=== PATIENT | male | born 1950 | race African-American/Black ===

== ENCOUNTER → 2016-04-28 | Outpatient (CLI) | payer OTHER ==
--- NOTE | 2016-04-28 14:11 | US ---
EXAMINATION TYPE: US liver DATE OF EXAM: 04/28/2016 2:00 PM COMPARISON: NONE CLINICAL HISTORY: Hep C B1.82. EXAM MEASUREMENTS: Liver Length: 18.1 cm Gallbladder Wall: 0.5 cm CBD: 1.1 cm Right Kidney: 9.4 x 4.1 x 3.9 cm Findings: Pancreas: Limited by overlying bowel Liver: enlarged Gallbladder: no evidence of stones, thickened GB wall Evidence for sonographic Larose's sign: No CBD: dilated Right Kidney: no evidence of hydronephrosis or mass IMPRESSION: 1. Mild hepatomegaly 2. No gallstones although there is mild wall thickening measuring 5 mm correlate clinically. 3. CBD measures 1.1 cm and appears dilated. Correlate for distal CBD obstruction or pathology includi ng stone.
== END | disposition home or self-care (01) ==
LOC: RADUSWWP 13:39
PROVIDERS: ATTEND Internal Medicine Gastroenterology
DX: R16.0 Hepatomegaly, not elsewhere classified (principal); B18.2 Chronic viral hepatitis C
CPT/HCPCS: 76705

== ENCOUNTER 2016-06-10 11:32 | Emergency (ER) | payer OTHER ==
--- NOTE | 2016-06-10 13:58 | XR ---
EXAMINATION TYPE: XR foot complete LT DATE OF EXAM: 06/10/2016 1:24 PM COMPARISON: NONE HISTORY: Pain The osseous structures are intact and narrowing the first MTP joint. There is chronic deformity proxi mal phalanx second digit suggestive of remote trauma.. There is no acute fracture or dislocation. IMPRESSION: 1. No acute fracture or dislocation. If symptoms persist, follow-up exam in 7 to 10 days could be ob tained.
--- NOTE | 2016-06-10 14:11 | ED ---
General Adult HPI - General Chief complaint: Extremity Injury, Lower Stated complaint: LEFT ANKLE PAIN Time Seen by Provider: 06/10/16 11:40 Source: patient, RN notes reviewed Mode of arrival: ambulatory Limitations: no limitations - History of Present Illness Initial comments: This is a 65-year-old male presents to the emergency department stating that every 3 or so months he gets up out of bed and the lateral aspect of his left foot hurts to the point where it is difficult to walk. Patient states he normally walks and off over 3-4 days and it goes away. Patient states about a week and a half ago this started but the pain persists. Patient denies any injury to the foot. Patient denies any redness. Patient denies any swelling. Patient denies any pain to the middle of the foot or the ankle. Patient states the foot looks completely normal but it does hurt to walk on it. Patient denies having stepped on anything recently. - Related Data Home Medications Medication Instructions Recorded Confirmed Aspirin [Adult Low Dose Aspirin EC] 81 mg PO DAILY 04/02/15 06/10/16 Cholecalciferol [Vitamin D3] 1,000 unit PO DAILY 04/02/15 06/10/16 Insulin Glargine [Lantus] 40 unit SQ DAILY 04/02/15 06/10/16 Lisinopril [Zestril] 10 mg PO DAILY 04/02/15 06/10/16 Sertraline [Zoloft] 100 mg PO DAILY 04/02/15 06/10/16 Sodium Bicarbonate Tab 650 mg PO BID 04/02/15 06/10/16 Gabapentin [Neurontin] 100 mg PO TID 06/10/16 06/10/16 Renal Cap 1 Mg 1 mg PO DAILY 06/10/16 06/10/16 Previous Rx's Medication Instructions Recorded Ibuprofen [Motrin] 600 mg PO Q6HR PRN #20 tab 06/10/16 Allergies Allergy/AdvReac Type Severity Reaction Status Date / Time No Known Allergies Allergy Verified 06/10/16 11:38 Review of Systems ROS Statement: Those systems with pertinent positive or pertinent negative responses have been documented in the HPI. ROS Other: All systems not noted in ROS Statement are negative. Past Medical History Past Medical History: Diabetes Mellitus, Hyperlipidemia, Hypertension, Renal Disease History of Any Multi-Drug Resistant Organisms: None Reported Past Surgical History: Orthopedic Surgery Past Psychological History: No Psychological Hx Reported Smoking Status: Former smoker Past Alcohol Use History: None Reported Past Drug Use History: None Reported General Exam - General Exam Comments Initial Comments: GENERAL Patient is well-developed and well-nourished. Patient is in mild distress. EYES Patient's pupils are equal and round. Extraocular motion is intact SKIN Unremarkable NEURO The patient is alert and oriented 3 PYSCH Patient has normal interpersonal interactions. MUSCULOSKELETAL Patient's foot is tender in the fifth metatarsal on the left foot. There is no swelling of the foot there is no redness of the foot there is no cut or abrasion. Limitations: no limitations Course Vital Signs 06/10/16 06/10/16 11:36 14:30 Temperature 97.8 F 97.5 F L Pulse Rate 78 70 Respiratory 20 18 Rate Blood Pressure 122/72 122/78 O2 Sat by Pulse 97 98 Oximetry Medical Decision Making - Medical Decision Making X-ray of the foot shows no acute abnormality Disposition Clinical Impression: Foot sprain Disposition: HOME SELF-CARE Instructions: Foot Sprain (ED) Prescriptions: Ibuprofen [Motrin] 600 mg PO Q6HR PRN #20 tab PRN Reason: For pain Referrals: Adair Caraballo MD [Primary Care Provider] - 1-2 days Time of Disposition: 14:11
[2016-06-10] MEDS: KETOROLAC 60 MG/2 ML VIAL IM STA (14:28)
[2016-06-10 14:36] VITALS: BP 122/78; PULSE 70; RESP 18; TEMP 97.5
== END 2016-06-10 14:36 | disposition home or self-care (01) ==
LOC: EC 11:32
DX: S93.602A Unspecified sprain of left foot, initial encounter (principal); E11.9 Type 2 diabetes mellitus without complications; E78.5 Hyperlipidemia, unspecified; I10 Essential (primary) hypertension; N28.9 Disorder of kidney and ureter, unspecified; Z87.891 Personal history of nicotine dependence; Z79.4 Long term (current) use of insulin; Z79.82 Long term (current) use of aspirin; Z79.899 Other long term (current) drug therapy; X58.XXXA Exposure to other specified factors, initial encounter
CPT/HCPCS: 73630; 99283; 96372; J1885

== ENCOUNTER → 2016-06-25 | Outpatient (CLI) | payer OTHER ==
--- NOTE | 2016-06-25 15:54 | XR ---
Right ankle HISTORY: Pain 3 views of the right ankle correlated to right foot same date Degenerative change present at the tibiotalar joint. Soft tissue swelling is noted. No fracture or di slocation. Alignment, bone mineralization maintained. IMPRESSION: Soft tissue swelling
--- NOTE | 2016-06-25 15:56 | XR ---
Right foot HISTORY: Right foot pain Correlation to right ankle same date There are degenerative changes at the metatarsophalangeal joint, tarsometatarsal joint of the first d igit. Alignment and bone mineralization are maintained. Enthesophyte present at the insertion of the Achilles tendon. IMPRESSION: Osteoarthritic changes as described.
== END | disposition home or self-care (01) ==
LOC: RADXRMAIN 15:11
PROVIDERS: ATTEND Internal Medicine
DX: M19.071 Primary osteoarthritis, right ankle and foot (principal); M79.89 Other specified soft tissue disorders

== ENCOUNTER → 2016-09-15 | Outpatient (CLI) | payer OTHER ==
[2016-09-15 13:40] LABS: Basophils # (A) 0.1 k/uL (0-0.2); Basophils % (A) 1 %; CH 27.2; CHCM 31.6; Eosinophils # (A) 0.1 k/uL (0-0.7); Eosinophils % (A) 2 %; HCT 43.8 % (39.0-53.0); HDW 3.33; HGB 13.5 gm/dL (13.0-17.5); Hypochromasia Slight; INR 1.2 (<1.1); Luc # (Auto) 0.14; Luc % (Auto) 2; Lymphocytes # (A) 2.3 k/uL (1.0-4.8); Lymphocytes % (A) 36 %; MCH 26.9 pg (25.0-35.0); MCHC 30.9 g/dL (31.0-37.0); Mean Platelet Volume 7.3; Monocytes # (A) 0.3 k/uL (0-1.0); Monocytes % (A) 5 %; Neutrophils # (A) 3.4 k/uL (1.3-7.7); Neutrophils % (A) 55 %; Prothrombin Time 11.6 sec (9.0-12.0); RBC 5.04 m/uL (4.30-5.90); RDW 15.5 % (11.5-15.5); WBC 6.3 k/uL (3.8-10.6); WBC (Perox) 6.09
[2016-09-15 13:44] LABS: Bilirubin, Delta 0.4 mg/dL (0.0-0.2); Total Bilirubin 0.7 mg/dL (0.2-1.3); Total Protein 8.5 g/dL (6.3-8.2)
[2016-09-16 15:16] LABS: Hepatits C Virus RNA, Quant <12 IU/mL (<12); LOG HCV IU/mL <1.08 (<1.08)
== END | disposition home or self-care (01) ==
LOC: LABWHC1 13:01
PROVIDERS: ATTEND Physician Assistant
DX: B18.2 Chronic viral hepatitis C (principal)
CPT/HCPCS: 36415; 80076; 82105; 85025; 85610; 87522

== ENCOUNTER → 2016-10-26 | Outpatient (CLI) | payer MEDICARE, OTHER ==
--- NOTE | 2016-10-26 08:05 | US ---
EXAMINATION TYPE: US liver DATE OF EXAM: 10/26/2016 COMPARISON: Previous study dated 04/28/2016. CLINICAL HISTORY: B18.2 CHR VIRAL HEP C. Chronic Hep C EXAM MEASUREMENTS: Liver Length: 16.9 cm Gallbladder Wall: 0.2 cm CBD: 1.3 cm Right Kidney: 9.4 x 4.5 x 4.4 cm Pancreas: Tail obscured by bowel gas, duct visualized= 2mm Liver: Heterogeneous, left and caudate lobe appeared enlarged Gallbladder: wnl Evidence for sonographic Larose's sign: No CBD: Dilated as seen on previous Right Kidney: wnl Limited views of the pancreas are normal. The liver is upper limits of normal in size. Liver parenchyma is heterogenous. The gallbladder is normal without cholelithiasis. Gallbladder wall measures 2 mm. Distal common hepat ic duct is enlarged measuring 1.3 cm. The right kidney is normal. IMPRESSION: 1. COARSENED LIVER TEXTURE OF UNCERTAIN ETIOLOGY. 2. CHRONICALLY DILATED COMMON HEPATIC DUCT.
== END | disposition home or self-care (01) ==
LOC: RADUSWWP 07:36
PROVIDERS: ATTEND Internal Medicine Gastroenterology
DX: B18.2 Chronic viral hepatitis C (principal); K76.89 Other specified diseases of liver
CPT/HCPCS: 76705

== ENCOUNTER → 2017-05-20 | Outpatient (CLI) | payer MEDICARE, OTHER | END | disposition home or self-care (01) | LOC: RADMRIMAIN 14:07 | PROVIDERS: ATTEND Physician Assistant | DX: Z53.9 Procedure and treatment not carried out, unspecified reason (principal) ==

== ENCOUNTER → 2017-06-14 | Outpatient (CLI) | payer MEDICARE, OTHER ==
[2017-06-14 13:31] LABS: Basophils % (A) 1 %; Eosinophils # (A) 0.1 k/uL (0-0.7); Eosinophils % (A) 4 %; HCT 40.3 % (39.0-53.0); HGB 12.8 gm/dL (13.0-17.5); Hypochromasia Slight; INR 1.1 (<1.2); Lymphocytes # (A) 1.3 k/uL (1.0-4.8); Lymphocytes % (A) 35 %; MCHC 31.7 g/dL (31.0-37.0); MCV 85.1 fL (80.0-100.0); Mean Platelet Volume 7.6; Monocytes # (A) 0.1 k/uL (0-1.0); Monocytes % (A) 4 %; Neutrophils # (A) 2.1 k/uL (1.3-7.7); Neutrophils % (A) 56 %; Platelet Count 136 k/uL (150-450); Prothrombin Time 10.7 sec (9.0-12.0); RBC 4.73 m/uL (4.30-5.90); RDW 15.1 % (11.5-15.5); WBC 3.8 k/uL (3.8-10.6)
[2017-06-14 13:36] LABS: Albumin 4.3 g/dL (3.5-5.0); Bilirubin, Delta 0.3 mg/dL (0.0-0.2); Bilirubin,Unconjugated 0.2 mg/dL (0.0-1.1); Total Bilirubin 0.5 mg/dL (0.2-1.3); Total Protein 7.6 g/dL (6.3-8.2)
[2017-06-15 15:08] LABS: Hepatits C Virus RNA Not detected (Not detected); Hepatits C Virus RNA, Quant <12 IU/mL (<12); LOG HCV IU/mL <1.08 (<1.08)
--- NOTE | 2017-06-15 22:08 | MR ---
EXAMINATION TYPE: MR liver wo/w con DATE OF EXAM: 06/14/2017 COMPARISON: Ultrasound 10/26/2016 and 07/12/2014 HISTORY: 66-year-old male abnormal findings on diagnostic imaging of liver Technique: Multiplanar, multisequence images of the abdomen were obtained before and after administra tion of 10 mL intravenous Gadavist gadolinium contrast. FINDINGS: Heart is normal size without pericardial effusion. The liver is enlarged measuring 18.9 cm. Opposed phase T1-weighted sequences of the liver show no sig nal loss to suggest fatty infiltration. There is a tiny subcentimeter nonenhancing T2 hyperintense fo cus in the right liver lobe suggestive of a benign cyst. No suspicious enhancing or hypervascular luis er lesion. Portal venous system is patent. The bile duct is dilated up to 1.3 cm which is the caliber seen on the ultrasound of 07/12/2014. Gallbladder shows no abnormal distention or surrounding inflammation. No discrete gallstone is seen. Spleen is enlarged measuring 15.6 cm on axial series. The adrenal glands, kidneys, and pancreas appear within normal limits. A borderline enlarged 9 mm fozia hepatic lymph node is likely reactive. Otherwise, no upper abdominal lymphadenopathy, ascites fluid, or gross bowel abnormality seen. IMPRESSION: Hepatosplenomegaly. No evidence for hepatoma. A borderline sized portahepatic lymph node at 9 mm is likely reactive.
== END | disposition home or self-care (01) ==
LOC: RADMRIMAIN 11:44
PROVIDERS: ATTEND Internal Medicine Gastroenterology
DX: R16.2 Hepatomegaly with splenomegaly, not elsewhere classified (principal); Z01.812 Encounter for preprocedural laboratory examination; B18.2 Chronic viral hepatitis C
CPT/HCPCS: 00000; 87522; 80076; 82565; 84520; 85025; 85610; 82105; 74183; A9581; 0

== ENCOUNTER → 2017-12-09 | Outpatient (CLI) | payer MEDICARE, OTHER ==
[2017-12-09 13:26] LABS: Anisocytosis Slight; HCT 39.7 % (39.0-53.0); HGB 12.3 gm/dL (13.0-17.5); Hypochromasia Slight; MCH 26.7 pg (25.0-35.0); MCHC 31.1 g/dL (31.0-37.0); MCV 85.8 fL (80.0-100.0); Mean Platelet Volume 7.4; Platelet Count 133 k/uL (150-450); Poikilocytosis Slight; RBC 4.63 m/uL (4.30-5.90); RDW 16.6 % (11.5-15.5); WBC 4.8 k/uL (3.8-10.6)
[2017-12-09 13:45] LABS: Appearance,Urine Clear (Clear); Bilirubin,Urine Negative (Negative); Blood,Urine Negative (Negative); Color,Urine Light Yellow; Glucose,Urine (UA) Negative (Negative); Ketones,Urine Negative (Negative); Leukocyte Esterase,Urine Negative (Negative); Nitrite,Urine Negative (Negative); PH, Urine 5.5 (5.0-8.0); Protein,Urine Negative (Negative); Specific Gravity,Urine 1.009 (1.001-1.035); Urobilinogen,Urine <2.0 mg/dL (<2.0)
[2017-12-09 13:53] LABS: Albumin 4.5 g/dL (3.5-5.0); Phosphorus 3.5 mg/dL (2.5-4.5); Potassium 4.9 mmol/L (3.5-5.1); Total Bilirubin 0.5 mg/dL (0.2-1.3); Total Protein 7.8 g/dL (6.3-8.2)
== END | disposition home or self-care (01) ==
LOC: LABWHC1 12:37
PROVIDERS: ATTEND Internal Medicine Nephrology
DX: N18.9 Chronic kidney disease, unspecified (principal); D63.1 Anemia in chronic kidney disease; E83.39 Other disorders of phosphorus metabolism; N39.0 Urinary tract infection, site not specified
CPT/HCPCS: 36415; 80053; 81003; 84100; 85027

== ENCOUNTER → 2017-12-24 | Outpatient (CLI) | payer MEDICARE, OTHER ==
[2017-12-24 14:08] LABS: Appearance,Urine Clear (Clear); Bilirubin,Urine Negative (Negative); Blood,Urine Negative (Negative); Color,Urine Yellow; Glucose,Urine (UA) Negative (Negative); Ketones,Urine Negative (Negative); Leukocyte Esterase,Urine Negative (Negative); Nitrite,Urine Negative (Negative); PH, Urine 5.5 (5.0-8.0); Protein,Urine Negative (Negative); Specific Gravity,Urine 1.016 (1.001-1.035); Urobilinogen,Urine <2.0 mg/dL (<2.0)
[2017-12-24 14:09] LABS: Anisocytosis Slight; Basophils % (A) 1 %; Eosinophils # (A) 0.2 k/uL (0-0.7); Eosinophils % (A) 4 %; HCT 43.2 % (39.0-53.0); HGB 13.7 gm/dL (13.0-17.5); Hypochromasia Slight; Lymphocytes # (A) 1.8 k/uL (1.0-4.8); Lymphocytes % (A) 40 %; MCH 27.4 pg (25.0-35.0); MCHC 31.8 g/dL (31.0-37.0); MCV 86.3 fL (80.0-100.0); Mean Platelet Volume 6.8; Monocytes # (A) 0.2 k/uL (0-1.0); Monocytes % (A) 5 %; Neutrophils # (A) 2.2 k/uL (1.3-7.7); Neutrophils % (A) 49 %; Platelet Count 136 k/uL (150-450); Poikilocytosis Slight; RBC 5.01 m/uL (4.30-5.90); RDW 16.5 % (11.5-15.5); WBC 4.4 k/uL (3.8-10.6)
[2017-12-24 14:53] LABS: Albumin 4.9 g/dL (3.5-5.0); Calcium 10.2 mg/dL (8.4-10.2); Uric Acid 5.8 mg/dL (3.5-8.5)
[2017-12-24 14:55] LABS: Creatinine,Urine Random 195.7 mg/dL
[2017-12-24 15:12] LABS: Collection Time,Urine 24 hrs; Total Volume 24 Hour,Urine 2375 mls (250-2400)
[2017-12-24 15:38] LABS: Total Protein 24 Hour,Urine 214 mg/24hr (42.0-225.0)
[2017-12-24 19:21] LABS: Protein, Total 8.1 g/dL (6.2-8.2)
[2017-12-24 19:29] LABS: Parathyroid Hormone Intact 85.9 pg/mL (14.0-72.0)
[2017-12-24 19:36] LABS: Iron Saturation 29.25 (15.00-50.00)
[2017-12-24 19:39] LABS: DNA Double-Stranded Indetermin (NEGATIVE)
[2017-12-24 19:45] LABS: Vitamin D 25 Hydroxy 23.5 ng/mL (30.0-100.0)
[2017-12-24 20:44] LABS: Hepatitis C IgG Antibody Reactive (Non-Reactive)
[2017-12-27 15:33] LABS: C-ANCA <1:20 Titer (<1:20); P-ANCA <1:20 Titer (<1:20)
[2017-12-28 15:59] LABS: Albumin 5.18 g/dL (3.80-4.90); Gamma Globulin 1.18 g/dL (0.70-1.50)
== END | disposition home or self-care (01) ==
LOC: LABWHC1 12:40
PROVIDERS: ATTEND Internal Medicine Nephrology
DX: N18.3 Chronic kidney disease, stage 3 (moderate) (principal); R53.83 Other fatigue; E55.9 Vitamin D deficiency, unspecified; N25.81 Secondary hyperparathyroidism of renal origin; M10.9 Gout, unspecified; N39.0 Urinary tract infection, site not specified; D63.1 Anemia in chronic kidney disease
CPT/HCPCS: 36415; 80048; 81003; 81050; 82040; 82306; 82570; 82728; 83516; 83540; 83550; 83735; 83970; 84100; 84156; 84165; 84550; 85025; 86038; 86160; 86162; 86225; 86255; 86335; 86803; 87340

== ENCOUNTER → 2018-05-27 | Outpatient (CLI) | payer MEDICARE, OTHER ==
[2018-05-27 11:17] LABS: Appearance,Urine Clear (Clear); Bilirubin,Urine Negative (Negative); Blood,Urine Negative (Negative); Color,Urine Yellow; Glucose,Urine (UA) Trace (Negative); Ketones,Urine Negative (Negative); Leukocyte Esterase,Urine Negative (Negative); Nitrite,Urine Negative (Negative); PH, Urine 5.5 (5.0-8.0); Protein,Urine Trace (Negative); Specific Gravity,Urine 1.016 (1.001-1.035); Urobilinogen,Urine <2.0 mg/dL (<2.0)
[2018-05-27 11:22] LABS: Basophils # (A) 0.1 k/uL (0-0.2); Basophils % (A) 1 %; Eosinophils # (A) 0.2 k/uL (0-0.7); Eosinophils % (A) 4 %; HCT 46.8 % (39.0-53.0); HGB 13.7 gm/dL (13.0-17.5); Hypochromasia Marked; Lymphocytes # (A) 1.6 k/uL (1.0-4.8); Lymphocytes % (A) 36 %; MCHC 29.3 g/dL (31.0-37.0); MCV 92.3 fL (80.0-100.0); Mean Platelet Volume 7.4; Monocytes # (A) 0.3 k/uL (0-1.0); Monocytes % (A) 6 %; Neutrophils # (A) 2.2 k/uL (1.3-7.7); Neutrophils % (A) 51 %; Platelet Count 139 k/uL (150-450); RBC 5.07 m/uL (4.30-5.90); RDW 15.9 % (11.5-15.5); WBC 4.3 k/uL (3.8-10.6)
[2018-05-27 11:30] LABS: Prothrombin Time 10.7 sec (9.0-12.0)
[2018-05-27 11:33] LABS: Bilirubin, Delta 0.2 mg/dL (0.0-0.2); Bilirubin,Unconjugated 0.5 mg/dL (0.0-1.1); Calcium 10.6 mg/dL (8.4-10.2); Magnesium 1.8 mg/dL (1.6-2.3); Phosphorus 3.6 mg/dL (2.5-4.5); Potassium 5.7 mmol/L (3.5-5.1); Total Bilirubin 0.7 mg/dL (0.2-1.3); Total Protein 8.6 g/dL (6.3-8.2); Uric Acid 6.2 mg/dL (3.5-8.5)
[2018-05-27 11:34] LABS: Creatinine,Urine Random 232.1 mg/dL
--- NOTE | 2018-05-27 15:26 | US ---
EXAMINATION TYPE: US liver DATE OF EXAM: 05/27/2018 COMPARISON: NONE CLINICAL HISTORY: B18.2 VIRAL HEPATITIS c. Chronic hepatitis C EXAM MEASUREMENTS: Liver Length: 17.3 cm Gallbladder Wall: 0.4 cm CBD: 1.2 cm Right Kidney: 9.5 x 4.9 x 4.5 cm Technical limitations due to large amount of overlying bowel content Pancreas: Obscured by bowel gas Liver: attenuating, heterogeneous Gallbladder: no evidence of stones Evidence for sonographic Larose's sign: no CBD: dilated Right Kidney: no evidence of hydronephrosis IMPRESSION: 1. Mild to moderate fatty infiltration the liver. No discrete masses are identified.
[2018-05-27 17:19] LABS: Parathyroid Hormone Intact 67.7 pg/mL (14.0-72.0)
[2018-05-27 17:39] LABS: Iron Saturation 27.04 (15.00-50.00)
[2018-05-27 17:46] LABS: Alpha Fetoprotein, Tumor Mkr 4.4 ng/mL (0.0-7.9); Vitamin D 25 Hydroxy 38.1 ng/mL (30.0-100.0)
[2018-05-30 07:27] LABS: Hepatits C Virus RNA Not detected (Not detected); Hepatits C Virus RNA, Quant <12 IU/mL (<12); LOG HCV IU/mL <1.08 (<1.08)
== END | disposition home or self-care (01) ==
LOC: RADUSWWP 09:29
DX: K76.0 Fatty (change of) liver, not elsewhere classified (principal); B18.2 Chronic viral hepatitis C; E55.9 Vitamin D deficiency, unspecified; E21.3 Hyperparathyroidism, unspecified; N18.3 Chronic kidney disease, stage 3 (moderate); E11.22 Type 2 diabetes mellitus with diabetic chronic kidney disease; D63.1 Anemia in chronic kidney disease; N39.0 Urinary tract infection, site not specified; M10.9 Gout, unspecified; R80.9 Proteinuria, unspecified
CPT/HCPCS: 36415; 76705; 80048; 80061; 80076; 81003; 82105; 82306; 82570; 82728; 83540; 83550; 83735; 83970; 84100; 84156; 84550; 85025; 85610; 87522

== ENCOUNTER → 2018-09-30 | Outpatient (CLI) | payer MEDICARE ==
[2018-09-30 10:51] LABS: Anisocytosis Slight; Basophils % (A) 1 %; Eosinophils # (A) 0.2 k/uL (0-0.7); Eosinophils % (A) 4 %; HCT 42.4 % (39.0-53.0); HGB 13.1 gm/dL (13.0-17.5); Hypochromasia Marked; Lymphocytes # (A) 1.8 k/uL (1.0-4.8); Lymphocytes % (A) 44 %; MCHC 30.9 g/dL (31.0-37.0); MCV 87.6 fL (80.0-100.0); Mean Platelet Volume 7.7; Monocytes # (A) 0.2 k/uL (0-1.0); Monocytes % (A) 5 %; Neutrophils # (A) 1.8 k/uL (1.3-7.7); Neutrophils % (A) 44 %; Platelet Count 127 k/uL (150-450); Poikilocytosis Slight; RBC 4.84 m/uL (4.30-5.90); RDW 16.6 % (11.5-15.5)
[2018-09-30 16:28] LABS: African American GFR (CKD) 38.9 (60.0-200.0); Albumin 4.8 g/dL (3.80-4.90); Albumin/Globulin Ratio 2.09 (1.60-3.17); Anion Gap 9.6 mmol/L (4.00-12.00); BUN/Creat Ratio 16.5 Ratio (12.00-20.00); Calcium 10.2 mg/dL (8.7-10.3); Carbon Dioxide 16.4 mmol/L (21.6-31.8); Globulin 2.3 g/dL (1.6-3.3); Potassium 5.6 mmol/L (3.5-5.5); Total Bilirubin 0.4 mg/dL (0.2-1.2); Total Protein 7.1 g/dL (6.2-8.2); Uric Acid 5.6 mg/dL (3.7-8.7)
[2018-09-30 16:46] LABS: Hemoglobin A1C 8.3 % (4.0-6.0)
== END | disposition home or self-care (01) ==
LOC: LABWHC1 09:26
PROVIDERS: ATTEND Internal Medicine
DX: E11.65 Type 2 diabetes mellitus with hyperglycemia (principal); I10 Essential (primary) hypertension; E78.2 Mixed hyperlipidemia; M10.00 Idiopathic gout, unspecified site; E55.9 Vitamin D deficiency, unspecified
CPT/HCPCS: 36415; 80053; 80061; 82306; 83036; 84443; 84550; 85025

== ENCOUNTER → 2019-05-02 | Outpatient (CLI) | payer MEDICARE, OTHER ==
--- NOTE | 2019-05-02 16:48 | US ---
EXAMINATION TYPE: US abd limited kidneys/bladder DATE OF EXAM: 05/02/2019 COMPARISON: US CLINICAL HISTORY: N17.9 Acute kidney failure, unspecified. Renal failure EXAM MEASUREMENTS: Liver Length: 15.6 cm Gallbladder Wall: 0.2 cm CBD: 1.4 cm Right Kidney: 9.8 x 4.8 x 4.5 cm Left Kidney: 9.5 x 4.8 x 4.3 cm Pancreas: 3mm duct visualized Liver: Heterogeneous with probable fatty sparing near fozia Gallbladder: wnl CBD: Dilated as visualized on prior Right Kidney: Lobulated contour, and cortical medullary differentiation is maintained, there is incr eased cortical echogenicity bilaterally Left Kidney: Lobulated contour, and increased cortical echogenicity Bladder: wnl Bilateral Jets Seen No IMPRESSION: Probable hepatic steatosis. Dilated common bile duct, consider gastroenterology consult. There may be underlying medical renal disease. IMPRESSION:
== END ==
LOC: RADUSMAIN 15:51
PROVIDERS: ATTEND Internal Medicine
DX: K83.8 Other specified diseases of biliary tract (principal)
CPT/HCPCS: 76705; 76770

== ENCOUNTER → 2019-10-04 | Outpatient (CLI) | payer MEDICARE, OTHER ==
[2019-10-04 11:49] LABS: Anisocytosis Slight; HCT 41.7 % (39.0-53.0); HGB 13.5 gm/dL (13.0-17.5); Hypochromasia Slight; MCHC 32.3 g/dL (31.0-37.0); MCV 83.6 fL (80.0-100.0); Mean Platelet Volume 7.4; Platelet Count 105 k/uL (150-450); Poikilocytosis Slight; RBC 4.99 m/uL (4.30-5.90); RDW 16.5 % (11.5-15.5); WBC 4.3 k/uL (3.8-10.6)
== END | disposition home or self-care (01) ==
LOC: LABWHC1 09:55
PROVIDERS: ATTEND Internal Medicine
DX: I10 Essential (primary) hypertension (principal); E78.2 Mixed hyperlipidemia; E11.65 Type 2 diabetes mellitus with hyperglycemia; Z79.4 Long term (current) use of insulin
CPT/HCPCS: 36415; 80053; 80061; 84443; 85027

== ENCOUNTER → 2019-10-06 | Outpatient (CLI) | payer MEDICARE, OTHER ==
[2019-10-06 17:14] LABS: ALT 37 U/L (10-49); AST 41 U/L (14-35); African American GFR (CKD) 34.4 (60.0-200.0); Albumin/Globulin Ratio 1.81 (1.60-3.17); Alkaline Phosphatase 74 U/L (41-126); BUN/Creat Ratio 14.09 Ratio (12.00-20.00); Calcium 9.7 mg/dL (8.7-10.3); Carbon Dioxide 19.1 mmol/L (21.6-31.8); Chloride 105 mmol/L (96-109); Chol/HDL Ratio 7.19; Cholesterol 187 mg/dL (0-200); Globulin 2.6 g/dL (1.6-3.3); Glucose 260 mg/dL (70-110); Non-African American GFR(CKD) 29.7 (60.0-200.0); Sodium 132 mmol/L (135-145); Total Bilirubin 0.3 mg/dL (0.2-1.2); Total Protein 7.3 g/dL (6.2-8.2); Triglycerides >1100.0 mg/dL (0.0-149.0)
== END | disposition home or self-care (01) ==
LOC: LABWHC1 10:07
PROVIDERS: ATTEND Internal Medicine
DX: I10 Essential (primary) hypertension (principal); Z79.4 Long term (current) use of insulin; E78.2 Mixed hyperlipidemia; E11.65 Type 2 diabetes mellitus with hyperglycemia
CPT/HCPCS: 36415; 80053; 80061; 83721

== ENCOUNTER → 2020-11-12 | Outpatient (CLI) | payer MEDICARE, OTHER ==
[2020-11-13 04:06] LABS: African American GFR (CKD) 30.7 (60.0-200.0); Anion Gap 10.6 mmol/L (4.00-12.00); BUN/Creat Ratio 16.67 Ratio (12.00-20.00); Calcium 9.8 mg/dL (8.7-10.3); Carbon Dioxide 17.4 mmol/L (21.6-31.8); Non-African American GFR(CKD) 26.5 (60.0-200.0)
== END | disposition home or self-care (01) ==
LOC: LABWHC1 13:26
PROVIDERS: ATTEND Internal Medicine Nephrology
DX: N18.4 Chronic kidney disease, stage 4 (severe) (principal)
CPT/HCPCS: 36415; 80048

== ENCOUNTER → 2021-01-07 | Outpatient (CLI) | payer MEDICARE, OTHER ==
[2021-01-07 10:46] LABS: Appearance,Urine Clear (Clear); Bilirubin,Urine Negative (Negative); Blood,Urine Negative (Negative); Color,Urine Yellow; Glucose,Urine (UA) Negative (Negative); Ketones,Urine Negative (Negative); Leukocyte Esterase,Urine Negative (Negative); Nitrite,Urine Negative (Negative); PH, Urine 5.5 (5.0-8.0); Protein,Urine Negative (Negative); Specific Gravity,Urine 1.016 (1.001-1.035); Urobilinogen,Urine <2.0 mg/dL (<2.0)
[2021-01-07 13:10] LABS: Creatinine,Urine Random 136.9 mg/dL
[2021-01-07 13:11] LABS: Protein/Creatinine Ratio,Urine 0.037
[2021-01-07 15:51] LABS: Basophils # (A) 0.04 X 10*3/uL (0.00-0.10); Basophils % (A) 0.9 %; Eosinophils # (A) 0.15 X 10*3/uL (0.04-0.35); Eosinophils % (A) 3.3 %; HCT 46.3 % (39.6-50.0); HGB 14.2 g/dL (13.0-17.0); Lymphocytes # (A) 2.06 X 10*3/uL (0.90-5.00); Lymphocytes % (A) 45.6 %; MCH 28.2 pg (27.0-32.0); MCHC 30.7 g/dL (32.0-37.0); Mean Platelet Volume 11.4 fL (9.5-12.2); Monocytes # (A) 0.35 X 10*3/uL (0.20-1.00); Monocytes % (A) 7.7 %; Neutrophils # (A) 1.91 X 10*3/uL (1.80-7.70); Neutrophils % (A) 42.3 %; Platelet Count 124 X 10*3/uL (140-440); RBC 5.03 X 10*6/uL (4.40-5.60); RDW 14.6 % (11.5-14.5); WBC 4.52 X 10*3/uL (4.50-10.00)
[2021-01-08 02:35] LABS: % Iron Saturation 19.08 (15.00-50.00); Magnesium 2.3 mg/dL (1.5-2.4); Phosphorus 3.6 mg/dL (2.4-5.1); Uric Acid 5.1 mg/dL (3.7-8.7)
[2021-01-08 06:34] LABS: Albumin 5.2 g/dL (3.8-4.9); Anion Gap 20.6 mmol/L (4.00-12.00); BUN/Creat Ratio 16.72 Ratio (12.00-20.00); Blood Urea Nitrogen 38.8 mg/dL (9.0-27.0); Calcium 10.4 mg/dL (8.7-10.3); Carbon Dioxide 13.2 mmol/L (21.6-31.8); Non-African American GFR(CKD) 27.6 (60.0-200.0); Potassium 5.6 mmol/L (3.5-5.5)
[2021-01-08 09:39] LABS: Protein, Total 7.6 g/dL (6.2-8.2)
== END | disposition home or self-care (01) ==
LOC: LABWHC1 09:03
PROVIDERS: ATTEND Internal Medicine Nephrology
DX: N18.4 Chronic kidney disease, stage 4 (severe) (principal); E55.9 Vitamin D deficiency, unspecified; N25.81 Secondary hyperparathyroidism of renal origin; M10.9 Gout, unspecified; N39.0 Urinary tract infection, site not specified; D64.9 Anemia, unspecified; N17.9 Acute kidney failure, unspecified; R80.9 Proteinuria, unspecified
CPT/HCPCS: 36415; 80048; 81003; 82040; 82306; 82570; 82728; 83540; 83550; 83735; 83970; 84100; 84156; 84165; 84550; 85025; 86334; 86335; 87205

== ENCOUNTER → 2021-01-30 | Outpatient (CLI) | payer MEDICARE, OTHER ==
--- NOTE | 2021-01-30 11:28 | XR ---
Lumbosacral spine HISTORY: Low back pain 5 views of the lumbosacral spine There is a levoscoliosis. Multilevel spondylosis is present. Lumbar vertebral bodies are preserved he ight and bone mineralization. Loss of disc are present within the intervertebral levels., There is va cuum phenomenon at L5-S1, L4-5. Sclerosis present in the posterior elements is consistent with facet arthropathy. There is a minimal retrolisthesis grade 1 L2-3. Loss of vertebral body height present at the superior endplate of T12 is mild and of questionable age. No evidence spondylolysis on oblique v iews. IMPRESSION: Degenerative disease, facet arthropathy, spinal curvature. Loss of superior endplate heig ht at T12 is mild.
== END | disposition home or self-care (01) ==
LOC: RADXRMAIN 09:26
PROVIDERS: ATTEND Internal Medicine
DX: M51.36 Other intervertebral disc degeneration, lumbar region (principal); M47.816 Spondylosis without myelopathy or radiculopathy, lumbar region
CPT/HCPCS: 72110

== ENCOUNTER → 2021-05-29 | Outpatient (CLI) | payer MEDICARE, OTHER ==
--- NOTE | 2021-05-30 17:36 | MR ---
EXAMINATION TYPE: MR lumbar spine wo con DATE OF EXAM: 05/29/2021 COMPARISON: Plain film 01/30/2021 HISTORY: Back pain and stiffness TECHNIQUE: Multiplanar, multisequence images of the lumbar spine were acquired without IV contrast. L1-L2: Normal disc appearance without desiccation. No herniation, protrusion or disc bulging. No ca nal stenosis is present. Foramina are patent bilaterally. L2-L3: Facet arthropathy with hypertrophy ligamentum flavum is noted, there is posterior lateral mass effect on the thecal sac. No definite foraminal encroachment, short pedicles are suspected, AP canal diameter is reduced overall. There is crowding of the nerve roots present. No evident disc herniatio n. L3-L4: Facet arthropathy with hypertrophy ligamentum flavum causes some posterior lateral mass effect on the thecal sac. Listhesis contributes with circumferential extension of endplate disc complex enc roaches upon the inferior aspect of the foramina. Nerve roots are crowded as at L4-5, mild spinal randy nosis is present. Posterior mild broad-based disc bulge is present L4-L5: There is a posterior right paracentral disc herniation causing anterior mass effect on the the christine sac. Circumferential extension endplate disc complex results in bilateral foraminal encroachment. Facet arthropathy with hypertrophy ligamentum flavum is present. There is encroachment on the latera l recesses, mild to moderate spinal stenosis. L5-S1: There is posterior extension endplate disc complex contacting the anterior thecal sac, posteri or disc herniation is suspected, axial image 2 causing anterior mass effect on the thecal sac. Facet arthropathy changes are present. No significant spinal stenosis. Circumferential extension endplate d isc complex results in bilateral foraminal encroachment. On sagittal image #9 of the T1 data set, axi al image 1 there is a focus of increased signal on T1-weighted images, low signal on T2-weighted sequ ences which appears to be within the thecal sac. This is incompletely evaluated. Focus measures appro ximately 5 mm at the L5-S1 level. Lumbar segments are intact. No paraspinal masses are identified. Conus medullaris has a normal appe arance. Suspect bone marrow replacement, correlate for possible anemia. There is multilevel spondylos is with endplate discogenic marrow signal changes, Schmorl's node formation. Loss of disc height sign al is greatest at L4-5, L5-S1 with associated vacuum phenomenon. There is a slight spinal curvature. Retrolisthesis grade 1 L5-S1, anterolisthesis grade 1 at L4-5, L3-4. Common bile duct is dilated. IMPRESSION: Degenerative disc disease with multilevel disc herniations, facet arthropathy, multilevel foraminal encroachment and spinal stenosis. Indeterminate focus within the thecal sac is questioned, postcontrast images through the lower spine with attention to the L5-S1 level may be of benefit
== END | disposition home or self-care (01) ==
LOC: RADMRIMAIN 11:17
PROVIDERS: ATTEND Internal Medicine
DX: M48.061 Spinal stenosis, lumbar region without neurogenic claudication (principal); M47.896 Other spondylosis, lumbar region; M51.36 Other intervertebral disc degeneration, lumbar region; M51.26 Other intervertebral disc displacement, lumbar region
CPT/HCPCS: 72148

== ENCOUNTER → 2021-07-22 | Outpatient (CLI) | payer MEDICARE, OTHER ==
[2021-07-22 10:25] LABS: Creatinine,Urine Random 166.3 mg/dL
[2021-07-22 14:28] LABS: Appearance,Urine Clear (Clear); Bilirubin,Urine Negative (Negative); Blood,Urine Negative (Negative); Color,Urine Yellow (Yellow); Ketones,Urine Negative (Negative); Nitrite,Urine Negative (Negative); Specific Gravity,Urine 1.017 (1.001-1.030); Urobilinogen,Urine 0.2 (0.2,1.0)
[2021-07-22 15:11] LABS: Basophils # (A) 0.05 X 10*3/uL (0.00-0.10); Basophils % (A) 0.9 %; Eosinophils # (A) 0.16 X 10*3/uL (0.04-0.35); HCT 44.9 % (39.6-50.0); HGB 13.5 g/dL (13.0-17.0); Immature Grans, Automated 0.2 %; Lymphocytes # (A) 2.38 X 10*3/uL (0.90-5.00); Lymphocytes % (A) 44.1 %; MCH 26.8 pg (27.0-32.0); MCHC 30.1 g/dL (32.0-37.0); MCV 89.3 fL (80.0-97.0); Mean Platelet Volume 10.6 fL (9.5-12.2); Monocytes # (A) 0.48 X 10*3/uL (0.20-1.00); Monocytes % (A) 8.9 %; NRBC Per 100 WBC 0 /100 WBCS (0.0-0.0); Neutrophils # (A) 2.32 X 10*3/uL (1.80-7.70); Neutrophils % (A) 42.9 %; Platelet Count 134 X 10*3/uL (140-440); RBC 5.03 X 10*6/uL (4.40-5.60); RDW 15.4 % (11.5-14.5)
[2021-07-22 16:16] LABS: % Iron Saturation 22.28 (15.00-50.00); African American GFR (CKD) 34.9 (60.0-200.0); Anion Gap 13.5 mmol/L (10.00-18.00); BUN/Creat Ratio 13.47 Ratio (12.00-20.00); Blood Urea Nitrogen 29.1 mg/dL (9.0-27.0); Calcium 10.2 mg/dL (8.7-10.3); Carbon Dioxide 19.7 mmol/L (20.0-27.5); Magnesium 2.2 mg/dL (1.5-2.4); Non-African American GFR(CKD) 30.1 (60.0-200.0); Phosphorus 3.4 mg/dL (2.4-5.1); Potassium 5.1 mmol/L (3.5-5.5); Uric Acid 5.9 mg/dL (3.7-8.7)
== END | disposition home or self-care (01) ==
LOC: LABWHC1 08:15
PROVIDERS: ATTEND Nurse Practitioner Family
DX: N25.81 Secondary hyperparathyroidism of renal origin (principal); N18.32 Chronic kidney disease, stage 3b; E55.9 Vitamin D deficiency, unspecified; M10.9 Gout, unspecified; N39.0 Urinary tract infection, site not specified; D64.9 Anemia, unspecified; R80.9 Proteinuria, unspecified
CPT/HCPCS: 36415; 80048; 81003; 82040; 82306; 82570; 82728; 83540; 83550; 83735; 83970; 84100; 84156; 84550; 85025

== ENCOUNTER → 2021-08-11 | Outpatient (CLI) | payer MEDICARE, OTHER ==
--- NOTE | 2021-08-12 09:33 | US ---
EXAMINATION TYPE: US kidneys/renal and bladder DATE OF EXAM: 08/11/2021 COMPARISON: 05/02/2019 CLINICAL HISTORY: 71-year-old male N18.32 CKD STAGE 3. TECHNIQUE: Multiple sonographic images of the kidneys and bladder are obtained. FINDINGS: EXAM MEASUREMENTS: Right Kidney: 9.9 x 4.1 x 4.6 cm Left Kidney: 9.3 x 4.3 x 4.7cm Post Void Residual Volume: 18.7 mL Right Kidney: No hydronephrosis or masses seen, lobular contour Left Kidney: No hydronephrosis or masses seen, lobular contour Bladder: Partially distended bladder shows no gross abnormality. Bilateral Jets seen: Yes Normal Post Void Residual: yes Patient attempted to void but could not. IMPRESSION: 1. No hydronephrosis. 2. Increased postvoid bladder volume of nearly 20 mL still falls within acceptable limits.
== END | disposition home or self-care (01) ==
LOC: RADUSWWP 15:18
PROVIDERS: ATTEND Internal Medicine Nephrology
DX: N18.32 Chronic kidney disease, stage 3b (principal)
CPT/HCPCS: 76770

== ENCOUNTER 2022-04-23 07:54 | Day surgery (SDC) | payer MEDICARE, OTHER ==
[2022-04-21 14:26] VITALS: BMI 31.7
[~2022-04-23 07:54] MED LIST: LACTATED RINGERS 1,000 ML IV SCH; LIDOCAINE 1% (10MG/ML) FOR IV START INTRADERMA PRN
[2022-04-23 09:00] LABS: Glucose,Whole Blood 160 mg/dL (70-110)
[2022-04-23 09:08] VITALS: TEMP 97
[2022-04-23] MEDS ORDERED: PROPOFOL 10 MG/ML 20 ML VIAL IV ONE (09:49)
--- NOTE | 2022-04-23 09:52 | P.GSHP ---
History of Present Illness H&P Date: 04/23/22 Chief Complaint: Screening colonoscopy Cyst 71-year-old male who presents today for screening colonoscopy. Patient denies a significant GI complaints. Past Medical History Past Medical History: Diabetes Mellitus, Hyperlipidemia, Hypertension, Renal Disease Additional Past Medical History / Comment(s): kidney disease stage 4., gout, hx hepatitis with tx., states silent CT (1981)., "bad disc's" with back pain., states he tires easily. History of Any Multi-Drug Resistant Organisms: None Reported Past Surgical History: Orthopedic Surgery Additional Past Surgical History / Comment(s): surgery for infection from nova nail (work)., colonoscopy. Past Anesthesia/Blood Transfusion Reactions: No Reported Reaction Past Psychological History: No Psychological Hx Reported Smoking Status: Former smoker Past Alcohol Use History: Rare Additional Past Alcohol Use History / Comment(s): quit smoking 2005, smoked 25 yrs, hx of 1ppd. Past Drug Use History: None Reported - Past Family History Mother Family Medical History: Cancer Medications and Allergies Home Medications Medication Instructions Recorded Confirmed Type Aspirin [Adult Low Dose Aspirin EC] 81 mg PO DAILY 04/02/15 04/21/22 History Insulin Glargine [Lantus] 45 unit SQ HS 04/02/15 04/21/22 History Sertraline [Zoloft] 100 mg PO DAILY 04/02/15 04/21/22 History Sodium Bicarbonate Tab 1,300 mg PO BID 04/02/15 04/21/22 History Cyanocobalamin (Vitamin B-12) 5,000 mcg PO DAILY 04/21/22 04/21/22 History [Vitamin B-12] Dulaglutide [Trulicity] 1.5 mg SQ WEEKLY 04/21/22 04/21/22 History Fenofibrate Nanocrystallized 290 mg PO BID 04/21/22 04/21/22 History [Fenofibrate] Gabapentin [Neurontin] 300 mg PO TID 04/21/22 04/21/22 History Rosuvastatin [Crestor] 10 mg PO DAILY 04/21/22 04/21/22 History Vitamin B Complex 1 each PO DAILY 04/21/22 04/21/22 History allopurinoL 200 mg PO BID 04/21/22 04/21/22 History amLODIPine [Norvasc] 5 mg PO DAILY 04/21/22 04/21/22 History lisinopriL 2.5 mg PO DAILY 04/21/22 04/21/22 History traMADol HCL [traMADol HCL ER] 100 mg PO QID 04/21/22 04/21/22 History Allergies Allergy/AdvReac Type Severity Reaction Status Date / Time No Known Allergies Allergy Verified 04/23/22 08:29 Surgical - Exam Vital Signs Temp Pulse Resp BP Pulse Ox 97.0 F L 86 16 150/87 96 04/23/22 08:37 04/23/22 08:37 04/23/22 08:37 04/23/22 08:37 04/23/22 08:37 - General well developed, well nourished, no distress - Eyes PERRL - ENT normal pinna - Neck no masses - Respiratory normal expansion - Cardiovascular Rhythm: regular - Abdomen Abdomen: soft, non tender Results - Labs Abnormal Lab Results - Last 24 Hours (Table) 04/23/22 Range/Units 08:58 POC Glucose (mg/dL) 160 H (70-110) mg/dL Assessment and Plan Assessment: We'll perform screening colonoscopy
--- NOTE | 2022-04-23 10:06 | P.OP ---
Date of Procedure: 04/23/22 Preoperative Diagnosis: Screening colonoscopy Postoperative Diagnosis: Diverticulosis Procedure(s) Performed: Colonoscopy Anesthesia: MAC Surgeon: Corey Galarza Pathology: none sent Condition: stable Disposition: PACU Description of Procedure: Patient's placed on the endoscopy table in the lateral position. He received IV sedation. Digital rectal exam was performed. This revealed no ebonized. The flexible colonoscope was then placed patient anus and passed throughout the entire colon. The ileocecal valve was visually is. The cecum, ascending and transverse colon appeared normal. The descending and sigmoid colon had moderate diverticular changes. Scope was brought back the rectum and this appeared normal. Scope withdrawn for patient.
[2022-04-23 10:23] VITALS: BP 99/62; PULSE 71; RESP 16
== END 2022-04-23 10:46 | disposition home or self-care (01) ==
LOC: ORWHC2ENDO 07:54
PROVIDERS: ATTEND Surgery
DX: Z12.11 Encounter for screening for malignant neoplasm of colon (principal); K57.30 Diverticulosis of large intestine without perforation or abscess without bleeding; I12.9 Hypertensive chronic kidney disease with stage 1 through stage 4 chronic kidney disease, or unspecified chronic kidney disease; E11.22 Type 2 diabetes mellitus with diabetic chronic kidney disease; N18.4 Chronic kidney disease, stage 4 (severe); E78.5 Hyperlipidemia, unspecified; I25.2 Old myocardial infarction; Z87.891 Personal history of nicotine dependence; Z86.59 Personal history of other mental and behavioral disorders; Z79.82 Long term (current) use of aspirin; Z79.4 Long term (current) use of insulin; Z79.899 Other long term (current) drug therapy
CPT/HCPCS: J2704; G0121

== ENCOUNTER 2022-11-16 13:39 | Emergency (ER) | payer MEDICARE, OTHER ==
--- NOTE | 2022-11-16 14:22 | ED ---
Chest Pain HPI - General Source: patient, RN notes reviewed Mode of arrival: ambulatory Limitations: no limitations <Mustapha Martinez - Last Filed: 11/16/22 14:20> - General Source: patient, RN notes reviewed, old records reviewed <Stan Ortiz - Last Filed: 11/16/22 20:54> - General Chief Complaint: Chest Pain Stated Complaint: chest pain Time Seen by Provider: 11/16/22 14:01 - History of Present Illness Initial Comments: This a 72-year-old male presents emergency Department chief complaint of chest pain. Patient states that he's had symptoms on and off for last 3-4 weeks. Patient saw PCP late last week in which she was placed on some antibiotics and nasal spray. Patient states that he was told to come emergency department if symptoms do not improve. He states the pain has worsened over the last few days. He states he usually associated with a cough. He does admit to a history of diabetes, hyperlipidemia hypertension and renal disease. Denies any prior cardiac disease denies any abdominal pain, leg pain or leg swelling (Mustapha Martinez) Patient is a 72-year-old male who presents emergency Department complaining of chest pain. Appears to be more chest wall pain is worse with coughing. Has been having coughing for the last 2-3 weeks with nasal congestion. Is having worsening chest discomfort during coughing fits. Was seen by his PCP and seems to be somewhat improving but is still having the chest discomfort which is why he was sent in for further evaluation. Symptoms overall been ongoing for the last multiple weeks. Somewhat worsening chest wall pain over the last 3 days or so. Denies fevers. Denies any abdominal pain, nausea, vomiting, diaphoresis. Denies smoking. Has a history of ESRD. Has no other acute complaints at this time. Uncertain what is causing his current symptoms. Presents for further evaluation. No cardiac history per patient. No cardiac stent. Patient originally seen as a quick note. (Stan Ortiz) - Related Data Home Medications Medication Instructions Recorded Confirmed Aspirin [Adult Low Dose Aspirin EC] 81 mg PO DAILY 04/02/15 11/16/22 Insulin Glargine [Lantus] 50 unit SQ HS 04/02/15 11/16/22 Sertraline [Zoloft] 100 mg PO DAILY 04/02/15 11/16/22 Sodium Bicarbonate Tab 1,300 mg PO TID 04/02/15 11/16/22 Dulaglutide [Trulicity] 1.5 mg SQ SA 04/21/22 11/16/22 Fenofibrate Nanocrystallized 145 mg PO DAILY 04/21/22 11/16/22 [Fenofibrate] Gabapentin [Neurontin] 300 mg PO TID 04/21/22 11/16/22 allopurinoL 100 mg PO BID 04/21/22 11/16/22 amLODIPine [Norvasc] 5 mg PO DAILY 04/21/22 11/16/22 Amoxic-Pot Clav 500-125 mg 1 tab PO BID 11/16/22 11/16/22 [Augmentin 500-125 mg] Fluticasone Nasal [place] [Flonase 2 spr EA NOSTRIL DAILY PRN 11/16/22 11/16/22 Nasal [place]] Tramadol 100mg 100 mg PO QID 11/16/22 11/16/22 hydrALAZINE HCL [Apresoline] 25 mg PO DIRECTED 11/16/22 11/16/22 lisinopriL [Zestril] 5 mg PO DAILY 11/16/22 11/16/22 Allergies Allergy/AdvReac Type Severity Reaction Status Date / Time No Known Allergies Allergy Verified 11/16/22 19:35 Review of Systems ROS Other: All systems not noted in ROS Statement are negative. <Mustapha Martinez - Last Filed: 11/16/22 14:20> ROS Other: All systems not noted in ROS Statement are negative. <Stan Ortiz - Last Filed: 11/16/22 20:54> ROS Statement: Those systems with pertinent positive or pertinent negative responses have been documented in the HPI. Review of Systems: CONST: Denies fever EYES: Denies blurry vision ENT: Endorses nasal congestion C/V: Endorses chest wall pain RESP: Denies shortness of breath GI: Denies abdominal pain : Denies dysuria SKIN: Denies rash. MSK: Denies joint pain. NEURO: Denies headache (Stan Ortiz) EKG Findings - EKG Comments: EKG Findings:: 12-lead Electrocardiogram Interpretation Note. EKG was reviewed and interpreted by myself. 12-lead ECG performed at 1356 is interpreted by me as revealing normal sinus rhythm at a rate of 75 beats per minute. Left axis deviation. AK interval is 162 ms, QR sabianist is 106 ms, QTc is 415 ms.. There were no ST or T wave abnormalities to suggest myocardial ischemia or injury. R wave progression across the precordium was satisfactory. By my interpretation this EKG is non-diagnostic for acute ischemia. - EKG Results: EKG: interpreted by ERMD <Stan Ortiz - Last Filed: 11/16/22 20:54> Past Medical History Past Medical History: Diabetes Mellitus, Hyperlipidemia, Hypertension, Renal Disease Additional Past Medical History / Comment(s): kidney disease stage 4., gout, hx hepatitis with tx., states silent ND (1981)., "bad disc's" with back pain., states he tires easily. History of Any Multi-Drug Resistant Organisms: None Reported Past Surgical History: Orthopedic Surgery Additional Past Surgical History / Comment(s): surgery for infection from nova nail (work)., colonoscopy. Past Anesthesia/Blood Transfusion Reactions: No Reported Reaction Past Psychological History: No Psychological Hx Reported Smoking Status: Former smoker Past Alcohol Use History: Rare Past Drug Use History: None Reported - Past Family History Mother Family Medical History: Cancer <Mustapha Martinez - Last Filed: 11/16/22 14:20> General Exam Limitations: no limitations <Mustapha Martienz - Last Filed: 11/16/22 14:20> <Stan Ortiz - Last Filed: 11/16/22 20:54> - General Exam Comments Initial Comments: Visual Physical Exam Vital signs reviewed General: Well-appearing, nontoxic, no acute distress. Head: Normocephalic, atraumatic Eyes: PERRLA, EOMI ENT: Airway patent Chest: Nonlabored breathing Skin: No visual rash, normal skin tone Neuro: Alert and oriented 3 Musculoskeletal: No gross abnormalities (Mustapha Martinez) General: Appears in no acute distress. HEAD: Normal with no signs of head trauma. EYES: PERRLA, EOMI, conjunctiva normal, no discharge. ENT: Hearing grossly intact, normal oropharynx. RESPIRATORY: Clear breath sounds bilaterally. No wheezes, rales, or rhonchi. No hypoxia. C/V: Regular rate and rhythm. S1 and S2 auscultated, no significant edema, peripheral pulses 2+ and intact throughout ABD: Abd is soft, nontender, nondistended EXT: Normal range of motion, no obvious deformity SKIN: No rashes or lesions observed on exposed skin. NEURO: Alert and oriented 4. No focal deficits. (Stan Ortiz) Course Vital Signs 11/16/22 11/16/22 11/16/22 13:44 16:05 17:26 Temperature 98.2 F Pulse Rate 81 75 85 Respiratory 18 20 20 Rate Blood Pressure 158/89 146/102 155/103 O2 Sat by Pulse 98 98 98 Oximetry 11/16/22 11/16/22 11/16/22 18:00 19:00 19:34 Temperature Pulse Rate 74 75 75 Respiratory 18 18 18 Rate Blood Pressure 157/97 160/103 133/96 O2 Sat by Pulse 98 98 98 Oximetry 11/16/22 20:18 Temperature 98.5 F Pulse Rate 74 Respiratory 18 Rate Blood Pressure 146/91 O2 Sat by Pulse 96 Oximetry Chest Pain MDM <Mustapha Martinez - Last Filed: 11/16/22 14:20> <Stan Ortiz - Last Filed: 11/16/22 20:54> - MDM I performed a quick note portion of this chart signed Mustapha Martinez PA-C (Mustapha Martinez) Was pt. sent in by a medical professional or institution ([facility], SIDE TRIMMER, urgent care, hospital, or skilled nursing...) When possible be specific @ -No Did you speak to anyone other than the patient for history (EMS, parent, family, police, friend...)? What history was obtained from this source @ -No Did you review nursing and triage notes (agree or disagree)? Why? @ -I reviewed and agree with nursing and triage notes Were old charts reviewed (outside hosp., previous admission, EMS record, old EKG, old radiological studies, urgent care reports/EKG's, skilled nursing records)? Report findings @ -Reviewed the quick note from earlier today. Differential Diagnosis (chest pain, altered mental status, abdominal pain women, abdominal pain men, vaginal bleeding, weakness, fever, dyspnea, syncope, headache, dizziness, GI bleed, back pain, seizure, CVA, palpatations, mental health, musculoskeletal)? @ -Differential Chest Pain: Stable Angina, Unstable Angina, STEMI, NSTEMI Aortic Dissection, Pneumothorax, Musculoskeletal, Esophageal Spasm GERD, Cholecystitis, Pancreatitis, Zoster, this is not meant to be an all-inclusive list. EKG interpreted by me (3pts min.). @ -As above X-rays interpreted by me (1pt min.). @ -Chest x-ray reveals no obvious acute cardiopulmonary process. CT interpreted by me (1pt min.). @ -CT of the chest revealed no evidence of acute PE. U/S interpreted by me (1pt. min.). @ -None done What testing was considered but not performed or refused? (CT, X-rays, U/S, labs)? Why? @ -None What meds were considered but not given or refused? Why? @ -None Did you discuss the management of the patient with other professionals (professionals i.e. Dr., PA, SIDE TRIMMER, lab, RT, psych nurse, social service director, manufacturing business analyst, teacher, executive vice president and chief operating officer, behavioral health case manager)? Give summary @ -No Was smoking cessation discussed for >3mins.? @ -No Was critical care preformed (if so, how long)? @ -No Were there social determinants of health that impacted care today? How? (Homelessness, low income, unemployed, alcoholism, drug addiction, transportation, low edu. Level, literacy, decrease access to med. care, long term, rehab)? @ -No Was there de-escalation of care discussed even if they declined (Discuss DNR or withdrawal of care, Hospice)? DNR status @ -No What co-morbidities impacted this encounter? (DM, HTN, Smoking, COPD, CAD, Cancer, CVA, ARF, Chemo, Hep., AIDS, mental health diagnosis, sleep apnea, morbid obesity)? @ -None Was patient admitted / discharged? Hospital course, mention meds given and route, prescriptions, significant lab abnormalities, going to OR and other pertinent info. @ -Based on the patient's presentation and physical exam, patient appears to be having chest wall pain that is somewhat pleuritic in the setting of recently diagnosed upper respiratory infection. Continues to be ongoing which is why presents for further evaluation. Does not seem cardiac in nature and is atypical setting. Has been ongoing for multiple days to weeks. Presents for further evaluation at this time. Originally seen is a quick note. Vital signs within acceptable limits. I was in agreement with the plan for cardiac labs as well as EKG, chest x-ray, 4plex viral swab. Patient will be given Toradol for pain control. EKG shows no signs of acute ischemia.Patient's labs are remarkable for a slightly elevated d-dimer of 0.8. Remainder the patient's laboratory studies are within acceptable limits including an undetectable troponin the setting of multiple weeks of chest pain as well as negative viral swabs. I discussed results with the patient. He is feeling improved. We'll obtain CT PE which she was in agreement. Remainder the workup thus far is normal. CTPE negative for pulmonary embolism. After the patient. We discussed his workup. Believe he is likely expressing chest wall pain and muscle strains secondary to his cough which she is still on antibiotics for, likely underlying bronchitis. Recommended he continue the antibiotics until completion. He was in agreement this plan. Otherwise he'll be discharged from this time strict return precautions. He continues analgesic medications from [id number] for pain control. I instructed the patient to follow up with their PCP in the next 1-3 days. I explained that the patient should return to the emergency department if they experience any worsening symptoms. Strict return precautions were discussed with the patient. The patient expressed understanding of these instructions. I answered all questions that the patient had. The patient was discharged home in [good] condition with their prescriptions and follow up information. Undiagnosed new problem with uncertain prognosis? @ -No Drug Therapy requiring intensive monitoring for toxicity (Heparin, Nitro, Insulin, Cardizem)? @ -No Were any procedures done? @ -No Diagnosis/symptom? @ -Chest wall pain, muscle strain, URI Acute, or Chronic, or Acute on Chronic? @ -Acute Uncomplicated (without systemic symptoms) or Complicated (systemic symptoms)? @ -Complicated Side effects of treatment? @ -none Exacerbation, Progression, or Severe Exacerbation] @ -no Poses a threat to life or bodily function? @ -no (Stan Ortiz) Disposition <Mustapha Martinez - Last Filed: 11/16/22 14:20> Is patient prescribed a controlled substance at d/c from ED?: No Time of Disposition: 19:46 <Stan Ortiz - Last Filed: 11/16/22 20:54> Clinical Impression: Chest wall pain, URI (upper respiratory infection), Muscle strain Disposition: HOME SELF-CARE Condition: Good Instructions (If sedation given, give patient instructions): Chest Wall Pain (ED) Referrals: Flora Healy MD [Primary Care Provider] - 1-2 days
--- NOTE | 2022-11-16 14:32 | XR ---
EXAMINATION TYPE: XR chest 2V DATE OF EXAM: 11/16/2022 COMPARISON: NONE HISTORY: Chest pain. TECHNIQUE: Frontal and lateral views of the chest are obtained. FINDINGS: There is no focal air space opacity, pleural effusion, or pneumothorax seen. The cardiac silhouette size is within normal limits. The osseous structures are intact. IMPRESSION: No acute cardiopulmonary process.
[2022-11-16] MEDS ORDERED: KETOROLAC 15 MG/ML 1 ML VIAL IVP STA (16:16)
[2022-11-16 17:28] LABS: ALT 51 U/L (4-49); AST 56 U/L (17-59); African American GFR (CKD) 42 (>60 ml/min/1.73 sqM); Albumin 4.7 g/dL (3.5-5.0); Alkaline Phosphatase 36 U/L (38-126); Anion Gap 9 mmol/L; Blood Urea Nitrogen 26 mg/dL (9-20); Calcium 10.1 mg/dL (8.4-10.2); Carbon Dioxide 26 mmol/L (22-30); Chloride 106 mmol/L (98-107); Glucose 71 mg/dL (74-99); Non-African American GFR(CKD) 36 (>60 ml/min/1.73 sqM); Potassium 4.5 mmol/L (3.5-5.1); Sodium 141 mmol/L (137-145); Total Bilirubin 0.6 mg/dL (0.2-1.3); Total Protein 7.8 g/dL (6.3-8.2)
[2022-11-16 17:34] LABS: Partial Thromboplastin Time 22.1 sec (22.0-30.0); Prothrombin Time 10.7 sec (9.0-12.0)
[2022-11-16 18:01] LABS: Basophils % (A) 1 %; Eosinophils # (A) 0.2 k/uL (0-0.7); Eosinophils % (A) 3 %; HCT 36.2 % (39.0-53.0); Lymphocytes # (A) 1.9 k/uL (1.0-4.8); Lymphocytes % (A) 42 %; MCH 28.4 pg (25.0-35.0); MCHC 33.1 g/dL (31.0-37.0); MCV 85.7 fL (80.0-100.0); Mean Platelet Volume 7.8; Monocytes # (A) 0.2 k/uL (0-1.0); Monocytes % (A) 5 %; Neutrophils # (A) 2.1 k/uL (1.3-7.7); Neutrophils % (A) 46 %; Platelet Count 121 k/uL (150-450); RBC 4.22 m/uL (4.30-5.90); RDW 15.4 % (11.5-15.5); WBC 4.6 k/uL (3.8-10.6)
[2022-11-16] MEDS ORDERED: SODIUM CHLORIDE 0.9% 1,000 ML IV STA (18:44)
[2022-11-16 19:31] VITALS: RESP 18
--- NOTE | 2022-11-16 19:40 | CT ---
EXAMINATION TYPE: CT chest angio for PE CT DLP: 396.2 mGycm, Automated exposure control for dose reduction was used. DATE OF EXAM: 11/16/2022 7:18 PM COMPARISON: 11/16/2022 CLINICAL INDICATION:Male, 72 years old with history of dyspnea, elevated dimer; elevated d-dimer TECHNIQUE/CONTRAST: CTA scan of the thorax is performed with IV Contrast, patient injected with 80 mL of Isovue 370, MIP images are created and reviewed these are created on a separate workstation.. FINDINGS: Pulmonary Artery: There is no evidence for a filling defect within the pulmonary vasculature to sugge st acute pulmonary embolism. The pulmonary artery is of normal size. Lungs/Pleura: Mild intralobular septal thickening. No evidence of focal consolidation, pleural effusi on or pneumothorax. Airway: Large airways are patent. Heart: Is mildly enlarged for size. Vasculature: No evidence of aortic aneurysm. Mediastinum: No gross evidence of adenopathy. Small hiatal hernia is present. Musculoskeletal: No acute osseous abnormalities Soft Tissues: Unremarkable. Lower neck: No significant findings. Upper Abdomen: No significant findings. IMPRESSION: 1. No evidence of pulmonary embolism. 2. Cardiomegaly with mild pulmonary vascular congestion correlate with serum BNP.
[2022-11-16 20:20] VITALS: BP 146/91; PULSE 74; TEMP 98.5
== END 2022-11-16 20:30 | disposition home or self-care (01) ==
LOC: EC 13:39
DX: S29.011A Strain of muscle and tendon of front wall of thorax, initial encounter (principal); J06.9 Acute upper respiratory infection, unspecified; I12.0 Hypertensive chronic kidney disease with stage 5 chronic kidney disease or end stage renal disease; E11.22 Type 2 diabetes mellitus with diabetic chronic kidney disease; N18.6 End stage renal disease; E78.5 Hyperlipidemia, unspecified; I25.2 Old myocardial infarction; Z87.891 Personal history of nicotine dependence; Z79.899 Other long term (current) drug therapy; Z79.4 Long term (current) use of insulin; Z79.51 Long term (current) use of inhaled steroids; Z79.82 Long term (current) use of aspirin; Z20.822 Contact with and (suspected) exposure to COVID-19; X58.XXXA Exposure to other specified factors, initial encounter
CPT/HCPCS: 36415; 93005; 85379; 80053; 83735; 84484; 85025; 85610; 85730; 87636; 71046; 71275; 99285; 96374; 96361; J1885; Q9967

== ENCOUNTER → 2022-12-08 | Outpatient (CLI) | payer MEDICARE, OTHER | END | disposition home or self-care (01) | LOC: RADNMMAIN 11:08 | PROVIDERS: ATTEND Internal Medicine Nephrology | DX: Z53.9 Procedure and treatment not carried out, unspecified reason (principal) ==

== ENCOUNTER → 2023-06-16 | Outpatient (CLI) | payer MEDICARE, OTHER ==
--- NOTE | 2023-06-16 16:22 | NM ---
EXAMINATION TYPE: NM parathyroid w/spect DATE OF EXAM: 06/16/2023 COMPARISON: NONE CLINICAL INDICATION: Male, 72 years old with history of HYPERCALCEMIA 83.52; TECHNIQUE: Following administration of 24.1 mCi Tc99m Sestamibi. Anterior projection images of the neck and ches t were obtained 10 minutes and 3 hours post injection. SPECT images of the neck and chest were obtai thai and reconstructed in three axes. FINDINGS: Thyroid tracer washout: Delayed images demonstrate near-complete tracer washout from the thyroid. Parathyroid uptake: None. The two-hour delayed images do not demonstrate any focal abnormal persisten t uptake in the region of the parathyroid glands to suggest parathyroid adenoma. Normal uptake: There is physiological tracer uptake in the myocardium, liver, salivary glands, and th yroid gland. IMPRESSION: Normal parathyroid imaging study. No evidence for mediastinal uptake to suggest mediastinal parathyro id adenoma
== END | disposition home or self-care (01) ==
LOC: RADNMMAIN 11:10
PROVIDERS: ATTEND Internal Medicine Nephrology
DX: E83.52 Hypercalcemia (principal)
CPT/HCPCS: 78071; A9500

== ENCOUNTER → 2024-08-08 | Outpatient (CLI) | payer MEDICARE, OTHER ==
[2024-08-08 10:42] LABS: Protein/Creatinine Ratio,Urine 0.07
[2024-08-08 15:09] LABS: Basophils # (A) 0.04 X 10*3/uL (0.00-0.10); Eosinophils # (A) 0.09 X 10*3/uL (0.04-0.35); Eosinophils % (A) 2.3 %; HCT 42.7 % (39.6-50.0); HGB 12.9 g/dL (13.0-17.0); Lymphocytes % (A) 36.1 %; MCH 26.7 pg (27.0-32.0); MCHC 30.2 g/dL (32.0-37.0); MCV 88.4 FL (80.0-97.0); Mean Platelet Volume 10.8 FL (9.5-12.2); Monocytes # (A) 0.35 X 10*3/uL (0.20-1.00); NRBC Per 100 WBC 0 X 10*3/uL (0.00-0.01); Neutrophils # (A) 1.99 X 10*3/uL (1.80-7.70); Neutrophils % (A) 51.3 %; Platelet Count 151 X 10*3/uL (140-440); RBC 4.83 X 10*6/uL (4.40-5.60); RDW 15.8 % (11.5-14.5); WBC 3.88 X 10*3/uL (4.50-10.00)
[2024-08-08 15:25] LABS: % Iron Saturation 22.85 (15.00-50.00); Albumin 4.5 g/dL (3.8-4.9); BUN/Creat Ratio 12.33 Ratio (12.00-20.00); Blood Urea Nitrogen 22.2 mg/dL (9.0-27.0); Calcium 10.1 mg/dL (8.7-10.3); Carbon Dioxide 22.9 mmol/L (21.6-31.8); Chloride 105 mmol/L (96-109); Glucose 139 mg/dL (70-110); Iron 85 UG/DL (65-175); Phosphorus 2.6 mg/dL (2.4-5.1); Potassium 4.5 mmol/L (3.5-5.5); Sodium 141 mmol/L (135-145); Total Iron Binding Capacity 372 UG/DL (228-460); Uric Acid 4.7 mg/dL (3.7-8.7)
[2024-08-08 19:19] LABS: Appearance,Urine Clear (Clear); Bilirubin,Urine Negative (Negative); Blood,Urine Negative (Negative); Color,Urine Yellow (Yellow); Ketones,Urine Negative (Negative); Nitrite,Urine Negative (Negative); Urobilinogen,Urine 0.2 E.U./DL
== END | disposition home or self-care (01) ==
LOC: LABWHC1 08:56
PROVIDERS: ATTEND Internal Medicine Nephrology
DX: E55.9 Vitamin D deficiency, unspecified (principal); N18.32 Chronic kidney disease, stage 3b; D63.1 Anemia in chronic kidney disease; M10.9 Gout, unspecified; N39.0 Urinary tract infection, site not specified
CPT/HCPCS: 36415; 80048; 81003; 82040; 82043; 82164; 82306; 82570; 82728; 83540; 83550; 83735; 83970; 84100; 84156; 84550; 85025; 86334